=== PATIENT | female | born 1990 | race African-American/Black ===

== ENCOUNTER 2017-03-29 18:28 | Emergency (ER) | payer MEDICAID ==
[~2017-03-29] VITALS: Ht 167.6 cm; Wt 60.0 kg
[~2017-03-29 18:28] MED LIST: IBUP600 PO; IBUP800T23 PO; METR500I3 PO; OXYC1SOL5 PO
[2017-03-29 18:29] VITALS: BP 138/80; PULSE 70; RESP 16; TEMP 98.2; O2SAT 97
--- NOTE | 2017-03-29 18:34 | PD ---
Physical Exam Date Seen by Provider: Mar 29, 2017 Time Seen by Provider: 18:32 Data Data Last Documented VS Vital Signs Date Time Temp Pulse Resp B/P Pulse Ox O2 Delivery O2 Flow Rate FiO2 03/29/17 18:29 98.2 70 16 138/80 97 Room Air MDM Supervised Visit with CARLOS: No Narrative Course 26 YO F with complaint of possible exposure to chlamydia. Also requests test. LMP 03/12. Vitals reviewed. Patient seen in triage, awaiting bed placement. Shanice Ingram Mar 29, 2017 18:34
--- NOTE | 2017-03-29 19:22 | PD ---
HPI Chief Complaint: Environmental Sustainability Manager Problem/Complaint Time Seen by Provider: 19:18 Travel History International Travel<30 days: No Contact w/Intl Traveler<30days: No Traveled to known affect area: No History of Present Illness HPI 26-year-old black female presents to emergency department evaluation of any STD exposure. She states that her baby daddy positive for chlamydia today here in the ER. Patient states that she had. The middle of last month (). She denies any fever or chills. No nausea vomiting. No abdominal pain or pelvic pain. She states that she's always had a small amount of discharge from her vagina since her last child. She denies any rashes or lesions. No urinary symptoms. PFSH Past Medical History ADHD: Yes Anemia: Yes Asthma: Yes Bipolar Disorder: Yes Cardiovascular Problems: Yes (TOF) Diminished Hearing: No Respiratory: Yes Migraines: Yes Seizures: Yes Tetanus Vaccination: Unknown ?: Unknown LMP: 03/12/17 : 3 Para: 2 Miscarriage: 1 Past Surgical History Section: Yes Gynecologic Surgery: Yes Other Surgery: Yes (SURGERY FOR ECTOPIC ) Social History Alcohol Use: No Tobacco Use: Yes Substance Use: No Allergies-Medications (Allergen,Severity, Reaction): Coded Allergies: No Known Allergies (Verified , 06/04/16) Reported Meds & Prescriptions Reported Meds & Active Scripts Active Review of Systems Except as stated in HPI: all other systems reviewed are Neg Physical Exam Narrative GENERAL: Well-developed, well-nourished in no acute distress. Nontoxic appearing. HEAD: Normocephalic, atraumatic. EYES: Pupils equal round and reactive. Extraocular motions intact. No scleral icterus. No injection or drainage. ENT: TMs clear without erythema. The external auditory canals clear. Nose: clear . Posterior pharynx is pink and moist. No tonsillar edema or exudate. Uvula midline. Airway patent. NECK: Trachea midline.Supple, nontender, moves head freely. No central bony tenderness or spasm. CARDIOVASCULAR: Regular rate and rhythm without murmurs, gallops, or rubs. RESPIRATORY: Clear to auscultation. Breath sounds equal bilaterally. No wheezes , rales, or rhonchi. GASTROINTESTINAL: Abdomen soft, non-tender, nondistended. No hepato-splenomegaly , or palpable masses. No guarding. EXTREMITIES: No clubbing, cyanosis, or edema. No joint tenderness, effusion, or edema noted. BACK: Nontender without deformity or crepitance. No flank tenderness. Data Data Last Documented VS Vital Signs Date Time Temp Pulse Resp B/P Pulse Ox O2 Delivery O2 Flow Rate FiO2 03/29/17 18:29 98.2 70 16 138/80 97 Room Air Orders Azithromycin Powd Pack (Zithromax Powd P (03/29/17 19:30) Rocephin 250mg Vial Im X 1 (03/29/17 19:30) Lidocaine 1% Inj (50 Ml) (Xylocaine 1% I (03/29/17 19:30) MDM Medical Decision Making Medical Screen Exam Complete: Yes Emergency Medical Condition: Yes Medical Record Reviewed: Yes Differential Diagnosis MDM: Moderate Differential diagnoses: Chlamydia, gonorrhea, syphilis, chancroid, hepatitis, HIV, herpes Narrative Course Patient is given Rocephin 250 mg IM and 1 g of Zithromax by mouth. Patient is advised to follow-up the [facility] Department. Diagnosis Primary Impression: STD exposure Patient Instructions: General Instructions Additional Instructions: Rest. Partner notification. Follow-up with the [facility] Department for further STD testing such as HIV, syphilis and hepatitis. No intercourse until all partners treated. Always use a condom. Return to the ER if any problems. Med/Other Pt SpecificInfo: No Meds Exist/No RX given Disposition: 01 DISCHARGE HOME Condition: Stable Abelardo Sosa Mar 29, 2017 19:22
[2017-03-29] MEDS ORDERED: AZITHROMYCIN PWD FOR SUSP 1 GM PACKET PO ONE (19:30)
[2017-03-29] MEDS ORDERED: LIDOCAINE HCL 1% 50 ML VIAL IM ONE (19:30)
[2017-03-29] MEDS ORDERED: cefTRIAXone 250 MG VIAL IM ONE (19:30)
== END 2017-03-29 19:46 | disposition home or self-care (01) ==
LOC: NEPD 18:28
DX: Z20.2 Contact with and (suspected) exposure to infections with a predominantly sexual mode of transmission (principal)
CPT/HCPCS: 96372; 99284; J0696

== ENCOUNTER 2017-05-17 17:38 | Emergency (ER) | payer MEDICAID, OTHER ==
[~2017-05-17] VITALS: Ht 165.1 cm; Wt 61.4 kg
[2017-05-17] MEDS ORDERED: ACETAMINOPHEN/HYDROcodone 325 MG/5 MG TAB PO ONE (19:00)
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
[2017-05-17 19:18] VITALS: BP 126/82; PULSE 53; RESP 14; TEMP 98.1; O2SAT 100
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
[2017-05-17] MEDS ORDERED: HYDR-3535 PO (19:27)
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
[2017-05-17] MEDS ORDERED: BACL10TA PO (20:00)
[2017-05-17] MEDS ORDERED: IBUP800T23 PO (20:00)
== END 2017-05-17 20:17 | disposition home or self-care (01) ==
LOC: NEDAMB 17:38 → NEPD 20:17
DX: S16.1XXA Strain of muscle, fascia and tendon at neck level, initial encounter (principal); S46.911A Strain of unspecified muscle, fascia and tendon at shoulder and upper arm level, right arm, initial encounter; V43.62XA Car passenger injured in collision with other type car in traffic accident, initial encounter; Y92.414 Local residential or business street as the place of occurrence of the external cause
CPT/HCPCS: 71010; 72125; 73030; 99284